=== PATIENT | female | born 2000 | race Caucasian/White ===

== ENCOUNTER 2023-11-18 17:04 | Emergency (ER) | payer MEDICAID ==
[~2023-11-18] VITALS: Ht 154.9 cm; Wt 86.4 kg
[2023-11-18 17:31] VITALS: BP 124/47; PULSE 76; RESP 16; TEMP 98.2
== END 2023-11-18 20:00 | disposition left against medical advice (07) ==
LOC: EMS 17:04
DX: M79.601 Pain in right arm (principal); Z53.21 Procedure and treatment not carried out due to patient leaving prior to being seen by health care provider